=== PATIENT | female | born 1995 | race Caucasian/White ===

== ENCOUNTER 2019-09-03 11:26 | Emergency (ER) | payer SELFPAY ==
[~2019-09-03] VITALS: Ht 167.7 cm; Wt 70.4 kg
--- NOTE | 2019-09-03 12:10 | ED Lower Extremity ---
General Chief Complaint: Lower Extremity Stated Complaint: R HIP PAIN Nursing Triage Note: AMB TO ED REPORTS 2 YEARS AGO HAD STRESS FX IN R FEMUR 2 YEARS AGO WHILE SHE WAS IN THE [employer]. STARTED HAVING PAIN [address] MARTI MRI WAS ORDERED HAD TO CANCEL DUE TO THE [employer] WOULD NOT PAY FOR IT. HAS NOT HAD IF FOLLOWUP WITH DR MARTI FOR PSU SHE WAS WAITNG ON THE MRI. Nursing Sepsis Screen: No Definite Risk Source: patient Exam Limitations: no limitations History of Present Illness Date Seen by Provider: Sep 03, 2019 Time Seen by Provider: 12:08 Initial Comments Years ago while in some sort of [employer] training she incurred a stress fracture of the femur, somewhere near the hip that she cannot remember the exact anatomic location. She's been involved in activities with [facility] for the past month and has had a recurrence of this pain that she had. No fevers chills or direct injury that she can recall. Onset: just prior to arrival Severity: moderate Pain/Injury Location: right hip, right leg Method of Injury: unknown Modifying Factors: Worse With Movement Allergies and Home Medications Allergies Coded Allergies: No Known Drug Allergies (Unverified , 09/03/19) Home Medications Hydrocodone/Acetaminophen 1 Each Tablet, 1 TAB PO Q6H Prescribed by: BOBO LÓPEZ on 09/03/19 1242 Patient Home Medication List Home Medication List Reviewed: Yes Review of Systems Constitutional: see HPI EENTM: see HPI Respiratory: no symptoms reported Cardiovascular: no symptoms reported Genitourinary: no symptoms reported Musculoskeletal: see HPI Skin: no symptoms reported Psychiatric/Neurological: No Symptoms Reported Past Gbpcjir-Rlrbog-Kynelo Hx Patient Social History Alcohol Use: Denies Use Recreational Drug Use: No Smoking Status: Never a Smoker Recent Foreign Travel: No Contact w/Someone Who Travel: No Recent Infectious Disease Expo: No Recent Hopitalizations: No Past Medical History Surgeries: No Cardiac: No Neurological: No Cancer: No Psychosocial: No Integumentary: No Physical Exam Vital Signs Vital Signs - First Documented 09/03/19 11:51 Pulse 100 Resp 18 B/P (MAP) 120/74 (89) Pulse Ox 98 O2 Delivery Room Air Capillary Refill : Less Than 3 Seconds Height, Weight, BMI Height: '" Weight: lbs. oz. kg; 25.00 BMI Method: General Appearance: WD/WN, no apparent distress Neck: non-tender, full range of motion Respiratory: no respiratory distress, no accessory muscle use Hips: right hip pain, right hip soft tissue tenderness Legs: bilateral leg non-tender, bilateral leg normal inspection, bilateral leg normal range of motion Knees: bilateral knee non-tender, bilateral knee normal inspection, bilateral knee normal range of motion Ankles: bilateral ankle non-tender, bilateral ankle normal inspection, bilateral ankle normal range of motion Feet: right foot other (posterior tibial pulse is 1+ bilateral) Neurologic/Psychiatric: alert, normal mood/affect, oriented x 3 Skin: normal color, warm/dry Progress/Results/Core Measures Results/Orders My Orders Orders - BOBO LÓPEZ APRN Femur, Right, 2 Views (09/03/19 12:04) Hydrocodone/Apap 5/325 Tablet (Lortab 5 (09/03/19 12:15) Medications Given in ED Current Medications Medications Dose Ordered Sig/Keon Route Start Time Stop Time Status Last Admin Dose Admin Acetaminophen/ Hydrocodone Bitart 1 tab ONCE ONCE PO 09/03/19 12:15 09/03/19 12:16 DC 09/03/19 12:15 1 TAB Vital Signs/I&O 09/03/19 11:51 Pulse 100 Resp 18 B/P (MAP) 120/74 (89) Pulse Ox 98 O2 Delivery Room Air Blood Pressure Mean: 89 Departure Communication (Admissions) N department can get her in tomorrow at 2:45 PM for this, we will discharge her from the ER over to the scheduling department, crutches, pain medicine in the meantime. Impression Primary Impression: Right hip pain Disposition: 01 HOME, SELF-CARE Condition: Stable Departure-Patient Inst. Decision time for Depature: 12:41 Referrals: BARBARA MARTI MD (PCP) Primary Care Physician Patient Instructions: Hip Pain Add. Discharge Instructions: 1. Call the scheduling department listed on the outpatient order form for the MRI to reschedule the MRI. The results of this will be faxed to Dr. Marti at [facility]. In the meantime use crutches as needed for pain with weightbearing All discharge instructions reviewed with patient and/or family. Voiced understanding. Scripts Hydrocodone/Acetaminophen (Ucon 5-325 Tablet) 1 Each Tablet 1 TAB PO Q6H for Pain MDD 10 TABS for 7 Days, #10 TAB Prov: BOBO LÓPEZ APRN 09/03/19 Work/School Note: Work Release Form Date Seen in the Emergency Department: Sep 03, 2019 Return to Work: Sep 04, 2019 Other Restrictions Listed Below: No running, physical training, exercise until released Images Extremities-Lower 1 - Tenderness Copy Copies To 1: BARBARA MARTI MD, PETER J APRN Sep 03, 2019 12:10
[2019-09-03] MEDS ORDERED: HYDROcodone/APAP 5 MG/325 MG (LORTAB) TAB PO ONE (12:15)
--- NOTE | 2019-09-03 12:31 | Diagnostic Imaging Report ---
Indication: Right leg pain AP and lateral views of the right femur show no fracture, dislocation or other acute abnormalities. IMPRESSION: Negative right femur Dictated by: Dictated on workstation # [id number]
[2019-09-03] MEDS ORDERED: HYDR-4226 PO (12:42)
--- NOTE | 2019-09-03 12:59 | NUR ---
CALLED FRIEND TO COME GET HER DUE TO HAVING PAIN MEDS. SENT TO OP TO SCHEDULE MRI.
[2019-09-03 13:17] VITALS: BP 117/74
== END 2019-09-03 13:17 | disposition home or self-care (01) ==
LOC: EDUNIT# 11:26 → ER 11:27
DX: M25.551 Pain in right hip (principal); Z87.81 Personal history of (healed) traumatic fracture
CPT/HCPCS: 73552

== ENCOUNTER → 2019-09-04 | Outpatient (CLI) | payer OTHER ==
[~2019-09-04] MED LIST: HYDR-4226 PO
--- NOTE | 2019-09-04 15:52 | Diagnostic Imaging Report ---
PROCEDURE: MRI right joint lower extremity without contrast. TECHNIQUE: Multiplanar, multisequence non contrast-enhanced MRI of the right lower extremity was accomplished. INDICATION: Right hip pain. There are no prior studies available for comparison. By history, the patient has had a prior stress type fracture involving the right hip. On this study, there is no abnormal signal involving the bony pelvis or the hip joints to suggest bone edema or fracture. There is no sign of avascular necrosis of either femoral head and the hip joints and sacroiliac joints seem well maintained. There is a trace amount of fluid within each hip joint. Most likely this is physiologic in nature. The magnified images of the right hip failed to show any evidence for a labral tear. There is no abnormal signal arising from the musculature to indicate an acute abnormality. There is no pelvic mass or free fluid collection noted. The uterus is not enlarged. There are several small follicles associated with each ovary. There is no pelvic mass or free fluid collection noted. IMPRESSION: 1. There is no evidence for an acute bony abnormality. In particular there is no sign of bone edema that would suggest a recurrent stress fracture. 2. There is no evidence for avascular necrosis. 3. The labrum of the right hip appears to be intact. Dictated by: Dictated on workstation # [id number]
== END ==
LOC: EDUNIT# 08-18 08:45 → RAD 14:32
PROVIDERS: ATTEND Internal Medicine
DX: M25.551 Pain in right hip (principal); Z87.312 Personal history of (healed) stress fracture
CPT/HCPCS: 73721

== ENCOUNTER 2019-12-08 14:36 | Outpatient (RCR) | payer OTHER | END 2019-12-08 16:03 | disposition home or self-care (01) | PROVIDERS: ATTEND Internal Medicine | DX: M25.551 Pain in right hip (principal); Z87.312 Personal history of (healed) stress fracture ==

== ENCOUNTER 2019-12-14 16:17 | Emergency (ER) | payer SELFPAY ==
[~2019-12-14] VITALS: Ht 167 cm; Wt 70.9 kg
[2019-12-14 16:57] LABS: BILIRUBIN,URINE NEGATIVE (NEGATIVE); CLARITY,URINE SL CLOUDY; COLOR,URINE YELLOW; GLUCOSE, URINE (UA) NEGATIVE (NEGATIVE); KETONES,URINE NEGATIVE (NEGATIVE); LEUKOCYTE ESTERASE ,URINE NEGATIVE (NEGATIVE); NITRITE,URINE NEGATIVE (NEGATIVE); PROTEIN,URINE 1+ (NEGATIVE)
[2019-12-14] MEDS ORDERED: TRM50T PO (17:04)
--- NOTE | 2019-12-14 17:04 | ED Hip Pain/Injury ---
General Chief Complaint: Hip/Pelvic Problems Stated Complaint: R HIP PAIN Nursing Triage Note: CHRONIC HIP PAIN NOT RELIEVED BY IBUPROFEN. History of Present Illness Date Seen by Provider: Dec 14, 2019 Time Seen by Provider: 16:30 Initial Comments 24-year-old female initially had a stress fracture approximately 2017 with service. Reviewed her previous x-rays and MRI that were done here in the fall 2019. She went to physical therapy for short time but had to stop due to insurance, the therapist was concerned about a possible acetabular labral tear in the right hip. Since then, chronic pain intermittently in the right hip. She states over the last few days she's been working 8 hours at [employer], standing and walking. Increasing right hip, primarily in the groin pain. No new injuries. She took ibuprofen 800 mg prior to arrival. Timing/Duration: intermittent Location: hip (R) Method of Injury: unknown Associated Symptoms: denies symptoms Allergies and Home Medications Allergies Coded Allergies: ciprofloxacin (Verified Allergy, Severe, RASH, 12/14/19) Home Medications Tramadol HCl 50 Mg Tablet, 50 MG PO Q6H PRN for PAIN Prescribed by: OSCAR HANKS on 12/14/19 2542 Patient Home Medication List Home Medication List Reviewed: Yes Review of Systems Constitutional: no symptoms reported, see HPI Musculoskeletal: see HPI, joint pain (right hip) All Other Systems Reviewed Negative Unless Noted: Yes Past Irqidmi-Yutpve-Ulunja Hx Past Med/Social Hx: Reviewed Nursing Past Med/Soc Hx Patient Social History Recent Foreign Travel: No Contact w/Someone Who Travel: No Recent Infectious Disease Expo: No Recent Hopitalizations: No Past Medical History Surgeries: No Respiratory: No Cardiac: No Neurological: No Genitourinary: No Gastrointestinal: No Musculoskeletal: Yes (CHRONIC HIP PAIN) HEENT: No Cancer: No Psychosocial: No Integumentary: No Physical Exam Vital Signs Vital Signs - First Documented 12/14/19 16:22 Temp 37.0 Pulse 89 Resp 16 B/P (MAP) 110/74 (86) Pulse Ox 98 O2 Delivery Room Air Capillary Refill : Less Than 3 Seconds Height, Weight, BMI Height: '" Weight: lbs. oz. kg; 25.00 BMI Method: General Appearance: No Apparent Distress, WD/WN Cardiovascular: Regular Rate, Rhythm, No Edema, Normal Peripheral Pulses Respiratory: Chest Non Tender, Lungs Clear Back: Normal Inspection, No CVA Tenderness Extremity: Normal Capillary Refill, Normal Inspection, Pelvis Stable, Other (antalgic gait favoring the right hip, tenderness in the right groin, and no lateral thigh pain. Tolerates passive and active range of motion of the left hip but with pain. ) Neurologic/Psychiatric: Alert, Oriented x3, No Motor/Sensory Deficits, Normal Mood/Affect Progress/Results/Core Measures Results/Orders Lab Results Laboratory Tests Test 12/14/19 16:37 Range/Units Urine Color YELLOW Urine Clarity SL CLOUDY Urine pH 6.0 5-9 Urine Specific Tracy >=1.030 1.016-1.022 Urine Protein 1+ H NEGATIVE Urine Glucose (UA) NEGATIVE NEGATIVE Urine Ketones NEGATIVE NEGATIVE Urine Nitrite NEGATIVE NEGATIVE Urine Bilirubin NEGATIVE NEGATIVE Urine Urobilinogen 0.2 < = 1.0 MG/DL Urine Leukocyte Esterase NEGATIVE NEGATIVE Urine RBC (Auto) 3+ H NEGATIVE Urine RBC 5-10 H /HPF Urine WBC NONE /HPF Urine Squamous Epithelial Cells 5-10 /HPF Urine Crystals NONE /LPF Urine Bacteria MODERATE H /HPF Urine Casts NONE /LPF Urine Mucus MODERATE H /LPF Urine Culture Indicated YES My Orders Orders - OSCAR HANKS Ua Culture If Indicated (12/14/19 16:31) Urine Bedside (12/14/19 17:00) Tramadol Tablet (Ultram Tablet) (12/14/19 17:15) Urine Culture (12/14/19 16:37) Vital Signs/I&O 12/14/19 12/14/19 16:22 17:08 Temp 37.0 37.0 Pulse 89 89 Resp 16 16 B/P (MAP) 110/74 (86) 110/74 (86) Pulse Ox 98 98 O2 Delivery Room Air Blood Pressure Mean: 86 Departure Impression Primary Impression: Chronic right hip pain Disposition: 01 HOME, SELF-CARE Condition: Improved Departure-Patient Inst. Decision time for Depature: 17:00 Referrals: BARBARA MARTI MD (PCP/Family) Primary Care Physician Patient Instructions: Hip Pain (DC) Add. Discharge Instructions: Use crutches at all times, partial her nonweightbearing on the right lower extremity. Alternate between heat and ice to right hip. Take ibuprofen 600 mg every 8 hours, you may take the tramadol in between the ibuprofen if needed. Follow up with Dr. Marti at [facility] on Sunday. Return to the emergency department for new, urgent health care needs. All discharge instructions reviewed with patient and/or family. Voiced understanding. Scripts Tramadol HCl (Tramadol HCl) 50 Mg Tablet 50 MG PO Q6H PRN for PAIN, #15 TAB 0 Refills Prov: OSCAR HANKS 12/14/19 Copy Copies To 1: BARBARA MARTI MD, AMY ARNP Dec 14, 2019 17:04
[2019-12-14 17:06] LABS: BACTERIA,URINE MODERATE /HPF
[2019-12-14 17:08] VITALS: BP 110/74
== END 2019-12-14 17:08 | disposition home or self-care (01) ==
LOC: EDUNIT# 16:17 → ER 16:18
DX: G89.29 Other chronic pain (principal); M25.551 Pain in right hip; Z87.81 Personal history of (healed) traumatic fracture; Z88.1 Allergy status to other antibiotic agents
CPT/HCPCS: 81000; 84703; 87088; 99282